=== PATIENT | female | born 1980 | race Caucasian/White ===

== ENCOUNTER 2018-05-13 19:00 | Emergency (ER) | payer SELFPAY ==
[~2018-05-13] VITALS: Ht 152.4 cm; Wt 98.9 kg
[2018-05-13 19:05] VITALS: Ht 152.4 cm; Wt 98.9 kg
[2018-05-13 20:57] VITALS: BP 105/77
[2018-05-13 22:25] LABS: BASOPHIL % 0.3 % (0-2)
[2018-05-13 22:30] LABS: PLATELET COUNT 464 x10^3mcL (130-400); RED CELL DISTRIBUTION WIDTH 18.1 % (11.5-14.5)
[2018-05-13 22:44] LABS: CARBON DIOXIDE 30.3 mmol/L (21-32); CHLORIDE SERUM 104 mmol/L (98-107); CREATININE SERUM 0.7 mg/dL (0.6-1.0); GFR1 > 60 mL/min; GLUCOSE SERUM 94 mg/dL (74-106); POTASSIUM SERUM 3.5 mmol/L (3.5-5.1); SODIUM SERUM 141 mmol/L (136-145)
[2018-05-13 22:49] LABS: ALBUMIN 3.6 g/dL (3.4-5.0); ALKALINE PHOSPHATASE 142 U/L (46-116); ALT/SGPT 35 U/L (14-59); AST/SGOT 17 U/L (15-37); BILIRUBIN TOTAL 0.27 mg/dL (0.20-1.00); TOTAL PROTEIN, SERUM 7.5 g/dL (6.4-8.2)
== END 2018-05-13 23:57 | disposition left against medical advice (07) ==
LOC: ED 19:00
PROVIDERS: Specialist
DX: R07.89 Other chest pain (principal); Z90.710 Acquired absence of both cervix and uterus; Z98.890 Other specified postprocedural states; Z88.6 Allergy status to analgesic agent
CPT/HCPCS: 83880; 85378; J1200; J1885; J2405; J3010; Q0092; Q0162